=== PATIENT | female | born 1995 ===

== ENCOUNTER 2020-02-10 13:20 | Inpatient (IN) | payer OTHER ==
[2020-02-10 15:52] LABS: BASO % 0.2 % (0-2.0); EOS % 0.2 % (0-4.5); HEMOGLOBIN 9.7 GM/dL (10.7-15.3); MCH 24.7 pg (25.7-33.7); MCHC 32.3 g/dl (32.0-36.0); MEAN CELL VOLUME 76.4 fl (80-96); MEAN PLT VOLUME 9.3 fl (7.5-11.1); MONO % 4.7 % (3.8-10.2); NEUT % 76.9 % (42.8-82.8); PLATELET COUNT 207 K/MM3 (134-434); RBC 3.93 M/mm3 (3.60-5.2); RETICULOCYTES 1.99 % (0.5-1.5); WHITE BLOOD COUNT 9.8 K/mm3 (4.0-10.0)
[2020-02-10 15:53] LABS: INR 0.98 (0.83-1.09); PROTHROMBIN TIME (PATIENT) 11.9 SEC (9.7-13.0)
[2020-02-10 16:04] LABS: POTASSIUM 3.9 mmol/L (3.5-5.1)
[2020-02-10 16:06] LABS: CALCIUM 8.6 mg/dL (8.5-10.1)
[2020-02-10 16:07] LABS: BLOOD UREA NITROGEN 12.3 mg/dL (7-18)
[2020-02-10 16:09] LABS: URIC ACID 4.1 mg/dL (2.6-7.2)
[2020-02-10 16:10] LABS: CREATININE 0.5 mg/dL (0.55-1.3)
[2020-02-10 16:18] LABS: URINE APPEARANCE CLEAR; URINE BILIRUBIN NEGATIVE (NEGATIVE); URINE COLOR YELLOW; URINE GLUCOSE (UA) NEGATIVE (NEGATIVE); URINE KETONE NEGATIVE (NEGATIVE); URINE LEUK ESTERASE NEGATIVE (NEGATIVE); URINE NITRITE NEGATIVE (NEGATIVE); URINE PROTEIN NEGATIVE (NEGATIVE); URINE UROBILINOGEN 0.2 mg/dL (0.2-1.0)
[2020-02-10] MEDS ORDERED: BUTORPHANOL TARTRATE 1 MG/ML VIAL IVPB ONE (17:16)
[2020-02-10] MEDS ORDERED: PROMETHAZINE HCL 25 MG/1 ML VIAL IVPUSH ONE (17:16)
[2020-02-10] MEDS ORDERED: SODIUM PHOSPHATE/NA BIPHOS 133 ML ENEMA PR ONE (17:19)
[2020-02-10 18:08] VITALS: BMI 35.1
[2020-02-10] MEDS: ELECTROLYTE-148 SOLN 1,000 ML IV SCH (18:30)
[2020-02-10] MEDS ORDERED: OXYTOCIN 30 UNITS in 0.9% NS 30 UNIT/500 ML INFUS.BAG IVPB ONE (21:18)
[2020-02-10] MEDS ORDERED: OXYTOCIN 30 UNITS in 0.9% NS 30 UNIT/500 ML INFUS.BAG IVPB SCH (21:30)
[2020-02-11] MEDS ORDERED: OXYTOCIN 20 UNITS in 0.9% NS 20 UNIT/1,000 ML INFUS.BAG IV ONE (18:29)
[2020-02-11] MEDS ORDERED: PCA PUMP NR ONE (19:15)
[2020-02-11] MEDS ORDERED: BUPIVACAINE HCL/PF 0.25% (2.5MG/ML) 10 ML VIAL ONE (19:16)
[2020-02-11] MEDS ORDERED: FENTANYL/BUPIVACAINE/NS/PF - PCEA - 50 ML DISP.SYRIN EP ONE (19:26)
[2020-02-11] MEDS ORDERED: NALOXONE HCL 0.4 MG/ML VIAL IVPUSH PRN (19:43)
[2020-02-11] MEDS ORDERED: FENTANYL/BUPIVACAINE/NS/PF - PCEA - 50 ML DISP.SYRIN EP SCH (19:45)
[2020-02-11] MEDS: ELECTROLYTE-148 SOLN 1,000 ML IV SCH (20:18)
[2020-02-11] MEDS ORDERED: MISOPROSTOL 200 MCG TABLET ONE ×2 (20:43→20:44)
[2020-02-11] MEDS ORDERED: BENZOCAINE 20% 57 GM BOTTLE TP PRN (22:35)
[2020-02-11] MEDS ORDERED: WITCH HAZEL 50% (TUCKS) 40 PAD/JAR PAD TP PRN (22:35)
[2020-02-11] MEDS ORDERED: BENZOCAINE 28 GM HEMORRHOIDAL OINTMENT TP PRN (22:35)
[2020-02-11] MEDS ORDERED: BISACODYL 10 MG SUPP.RECT RC PRN (22:35)
[2020-02-11] MEDS ORDERED: MISOPROSTOL 200 MCG TABLET PV ONE (22:36)
[2020-02-11] MEDS ORDERED: OXYTOCIN 20 UNITS in 0.9% NS 20 UNIT/1,000 ML INFUS.BAG IV SCH (22:45)
[2020-02-11 22:53] LABS: CORD BASE EXCESS -4.3 mmol/L (0-2); CORD HCO3 22.8 mmHg (20-29); CORD pH 7.286 (7.14-7.44)
[2020-02-11 22:55] LABS: CORD BASE EXCESS -3.7 mmol/L (0-2); CORD HCO3 21.2 mmHg (20-29); CORD pH 7.364 (7.14-7.44)
[2020-02-12 08:11] LABS: BASO % 0.6 % (0-2.0); EOS % 0.1 % (0-4.5); HEMATOCRIT 23.2 % (32.4-45.2); HEMOGLOBIN 7.2 GM/dL (10.7-15.3); MCH 24.1 pg (25.7-33.7); MCHC 30.9 g/dl (32.0-36.0); MEAN CELL VOLUME 77.9 fl (80-96); MEAN PLT VOLUME 9.6 fl (7.5-11.1); MONO % 9.1 % (3.8-10.2); NEUT % 73.2 % (42.8-82.8); PLATELET COUNT 170 K/MM3 (134-434); RBC 2.97 M/mm3 (3.60-5.2); RDW 15.5 % (11.6-15.6); WHITE BLOOD COUNT 13.1 K/mm3 (4.0-10.0)
[2020-02-12] MEDS: CEFAZOLIN 1 GM/D5W 1 GM/50 ML BAG IVPB SCH ×2 (11:42→17:52)
[2020-02-12] MEDS: ACETAMINOPHEN 325 MG TABLET (FP) PO PRN (16:26)
[2020-02-12] MEDS: IBUPROFEN 600 MG TABLET (FP) PO PRN (16:27)
[2020-02-12] MEDS: FERROUS SO4 325 MG TABLET (FP) PO SCH (16:30)
[2020-02-12 17:03] LABS: BASO % 0.4 % (0-2.0); EOS % 0.2 % (0-4.5); HEMATOCRIT 24.7 % (32.4-45.2); HEMOGLOBIN 7.7 GM/dL (10.7-15.3); LYMPH % 20.6 % (8-40); MCH 24.2 pg (25.7-33.7); MCHC 31.3 g/dl (32.0-36.0); MEAN CELL VOLUME 77.3 fl (80-96); MEAN PLT VOLUME 9.3 fl (7.5-11.1); MONO % 6.8 % (3.8-10.2); PLATELET COUNT 206 K/MM3 (134-434); RBC 3.19 M/mm3 (3.60-5.2); RDW 15.5 % (11.6-15.6); WHITE BLOOD COUNT 13.1 K/mm3 (4.0-10.0)
[2020-02-12] MEDS ORDERED: SENNOSIDES/DOCUSATE COMBO (SENNA PLUS) TABLET (UD) PO PRN (22:00)
[2020-02-13] MEDS: CEFAZOLIN 1 GM/D5W 1 GM/50 ML BAG IVPB SCH (01:24)
[2020-02-13] MEDS: ACETAMINOPHEN 325 MG TABLET (FP) PO PRN ×2 (01:24→10:08)
[2020-02-13] MEDS: IBUPROFEN 600 MG TABLET (FP) PO PRN ×2 (01:25→10:08)
[2020-02-13 08:41] VITALS: BP 121/65; PULSE 72; TEMP 97.9
[2020-02-13] MEDS: FERROUS SO4 325 MG TABLET (FP) PO SCH (09:18)
== END 2020-02-13 13:55 | disposition home or self-care (01) | DRG 560 ==
LOC: JDEL 13:20 → JLDR 16:55 → J3W 02-11 23:53
PROVIDERS: ADMIT Obstetrics & Gynecology; ATTEND Obstetrics & Gynecology
PROC: 10E0XZZ Delivery of Products of Conception, External Approach (ICD-10-PCS; principal; 2020-02-11)
DX: O99.013 Anemia complicating pregnancy, third trimester (principal); O24.424 Gestational diabetes mellitus in childbirth, insulin controlled; Z3A.38 38 weeks gestation of pregnancy; Z37.0 Single live birth
CPT/HCPCS: 36415; 36600; 59409; 80048; 81003; 82803; 82962; 82977; 83010; 84450; 84460; 84550; 85025; 85045; 85610; 85730; 86762; 86780; 86850; 86900; 86901; 87340; C9803; U0003